=== PATIENT | male | born 1950 | race Caucasian/White ===

== ENCOUNTER 2019-04-18 07:31 | Emergency (ER) | payer MEDICARE, BC ==
[2019-04-18 07:40] VITALS: BP 136/93
--- NOTE | 2019-04-18 08:02 | ED Physician Documentation ---
PD HPI URI - Stated complaint Stated Complaint: COUGH/WEAKNESS - Chief complaint Chief Complaint: Resp - History obtained from History obtained from: Patient - History of Present Illness Timing - onset: How many days ago (4) Timing duration: Days (4) Timing details: Gradual onset Pain level max: 0 Pain level now: 0 Associated symptoms: Chills, Nasal congestion, Rhinorrhea, Dry cough, Dyspnea (tightness). No: Fever, Sore throat, Hemoptysis, NVD, Bilateral edema Contributing factors: Travel (visiting from [place]) Review of Systems Constitutional: denies: Fever, Chills Throat: denies: Sore throat Cardiac: denies: Chest pain / pressure Respiratory: reports: Cough GI: denies: Vomiting, Diarrhea Skin: denies: Rash Musculoskeletal: denies: Neck pain, Back pain Neurologic: denies: Focal weakness, Numbness, Headache PD PAST MEDICAL HISTORY - Past Medical History Past Medical History: Yes Respiratory: COPD - Present Medications Home Medications: Ambulatory Orders Medication Instructions Recorded Confirmed Albuterol Sulf [Ventolin Hfa 1 - 2 puffs INH Q4HR PRN 04/18/19 04/18/19 Inhaler] Doxycycline Hyclate 100 mg PO BID #20 capsule 04/18/19 Fluticasone Propionate [Flovent 12 gm IH 04/18/19 Hfa] Levothyroxine [Synthroid] 25 mcg PO QDAC 04/18/19 04/18/19 Metoprolol Tartrate 25 mg PO DAILY 04/18/19 04/18/19 predniSONE [Deltasone] 10 mg PO [id number] #42 tab 04/18/19 raNITIdine [Zantac] 150 mg PO BID 04/18/19 04/18/19 - Allergies Allergies/Adverse Reactions: Allergies Allergy/AdvReac Type Severity Reaction Status Date / Time No Known Drug Allergies Allergy Verified 04/18/19 07:38 - Living Situation Living Situation: reports: With family Living Arrangement: reports: At home - Social History Does the pt have substance abuse?: No - Family History Family history: reports: Non contributory PD ED PE NORMAL - Vitals Vital signs reviewed: Yes - General General: Alert and oriented X 3, No acute distress, Well developed/nourished - HEENT HEENT: PERRL, Ears normal, Moist mucous membranes, Pharynx benign - Neck Neck: Supple, no meningeal sign - Cardiac Cardiac: RRR, Strong equal pulses - Respiratory Respiratory: No respiratory distress, Other (dimished breath sounds bilaterally) - Abdomen Abdomen: Soft, Non tender, Non distended - Derm Derm: Warm and dry, No rash - Extremities Extremities: No edema - Neuro Neuro: Alert and oriented X 3 - Psych Psych: Normal mood, Normal affect Results - Vitals Vitals: Vital Signs - 24 hr 04/18/19 07:35 Temperature 36.7 C Heart Rate 73 Respiratory 18 Rate Blood Pressure 136/93 H O2 Saturation 97 Oxygen O2 Source Room air - Rads (name of study) cxr Radiology: Prelim report reviewed, EMP read contemporaneously, See rad report (Increased lung markings suggestive of airway disease. Small left lung base opacity could represent subsegmental atelectasis or developing infection.) PD MEDICAL DECISION MAKING - ED course Complexity details: reviewed results, re-evaluated patient, considered differential, d/w patient ED course: 68-year-old male with what appears to be COPD flare, possible developing pneumonia. Will place on a steroid taper for home. He will start the steroids tomorrow. Also given a spacer for his inhaler. Feels better after nebulizer treatment. Will place on doxycycline as well. Patient is well-appearing, nontoxic. No hypoxia. No respiratory distress. Patient and family counseled regarding signs and symptoms for which I believe and urgent re-evaluation would be necessary. Patient with good understanding of and agreement to plan and is comfortable going home at this time This document was made in part using voice recognition software. While efforts are made to proofread this document, sound alike and grammatical errors may occur. Departure - Departure Disposition: 01 Home, Self Care Clinical Impression: COPD exacerbation Pneumonia Qualifiers: Pneumonia type: due to unspecified organism Laterality: left Lung location: lower lobe of lung Qualified Code(s): J18.1 - Lobar pneumonia, unspecified organism Condition: Good Instructions: ED COPD Flare, ED Pneumonia Adult Follow-Up: your,doctor in 1 week [Other] Prescriptions: Doxycycline Hyclate 100 mg PO BID #20 capsule predniSONE [Deltasone] 10 mg PO [id number] #42 tab Comments: Take all antibiotics until gone. If you are still having difficulty breathing tomorrow, you can start the steroids at that time. Return if you worsen
[2019-04-18] MEDS ORDERED: BENZONATATE 100 MG CAPSULE PO STA (08:04)
[2019-04-18] MEDS ORDERED: IPRATROPIUM/ALBUTEROL 3 ML NEB INH STA (08:04)
--- NOTE | 2019-04-18 08:15 | XRAY Report ---
Reason: cough, body aches Procedure Date: 04/18/2019 Accession Number: [id number] / [id number] Procedure: XR - Chest 2 View X-Ray CPT Code: 16100 FULL RESULT: EXAM: CHEST RADIOGRAPHY EXAM DATE: 04/18/2019 07:57 AM. CLINICAL HISTORY: Cough, body aches. COMPARISON: None. TECHNIQUE: 2 views. FINDINGS: Lungs/Pleura: Increased lung markings. Small left lung base opacity. No effusions. Mediastinum: Heart and mediastinal contours are unremarkable. Other: None. IMPRESSION: 1. Increased lung markings suggestive of airways disease. 2. Small left lung base opacity could represent subsegmental atelectasis, or possibly developing infection [facility]
== END 2019-04-18 08:44 | disposition home or self-care (01) ==
LOC: ED 07:31
DX: J44.1 Chronic obstructive pulmonary disease with (acute) exacerbation (principal); J18.1 Lobar pneumonia, unspecified organism
CPT/HCPCS: 71046; 94640; 99283; 99284; A9270